=== PATIENT | male | born 2000 | race African-American/Black ===

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

== ENCOUNTER 2019-07-01 17:47 | Emergency (ER) | payer SELFPAY ==
[~2019-07-01] VITALS: Ht 182.9 cm; Wt 77.3 kg
[~2019-07-01 17:47] MED LIST: AMOX1TAB10 PO
[2019-07-01 18:46] LABS: BILIRUBIN,URINE NEGATIVE (NEG); CLARITY,URINE CLEAR; COLOR,URINE YELLOW; NITRITE,URINE NEGATIVE (NEG); PH,URINE 6.5 (<5.0-8.0); PROTEIN,URINE 30 mg/dL (NEG-TRACE)
[2019-07-01 18:51] LABS: BARBITURATES NEG (NEG); BENZODIAZEPINES NEG (NEG); CANNABINOIDS POS (NEG); COCAINE NEG (NEG); METHADONE NEG (NEG); OPIATES NEG (NEG); PHENCYCLIDINE NEG (NEG)
[2019-07-01 18:52] LABS: AMPHETAMINE/METHAMPHETAMINE NEG (NEG)
[2019-07-01 19:07] LABS: BACTERIA,URINE 0 /HPF (0-FEW); HYALINE CASTS, URINE OCCASIONAL /HPF; RBC,URINE OCC /HPF (0-2); SQUAMOUS EPITHELIAL CELL,UR FEW /LPF; WBC,URINE 0 /HPF (0-4)
[2019-07-01] MEDS ORDERED: IV NORMAL SALINE 1000ML BAG 1,000 ML IV ONE (19:15)
[2019-07-01] MEDS ORDERED: ONDANSETRON PF 4 MG/2 ML VIAL. IV ONE (19:30)
[2019-07-01] MEDS ORDERED: ONDANSETRON PF 4 MG/2 ML VIAL. ONE (19:31)
--- NOTE | 2019-07-01 20:11 | RAD ---
Exam: CT head INDICATION: Loss of consciousness TECHNIQUE: Sequential axial images through the head were obtained without the administration of IV contrast. Comparisons: None FINDINGS: No focal parenchymal lesion or hemorrhage is identified. There is no midline shift or sulcal effacement. No acute vascular territory infarction is identified. Culver-white distinction is preserved. The ventricular system is within normal limits without compression hydrocephalus. The basal cisterns are well maintained. The visualized portions of the paranasal sinuses and mastoid air cells are well-pneumatized. No acute fractures. IMPRESSION: No acute intracranial abnormality. Exposure: One or more of the following in the visualized dose reduction techniques were utilized for this examination: 1. Automated exposure control 2. Adjustment of the MA and/or KV according to patient size Use of iterative of reconstructive technique Electronically signed by: July Mesa MD (07/01/2019 8:09 PM) [id number]
[2019-07-01 20:14] LABS: BASO % 0 % (0-3); EOS # 0.1 x10^3/uL (0.0-0.7); EOS % 0 % (0-3); HEMATOCRIT 40.8 % (39.0-53.0); HEMOGLOBIN 13.8 g/dL (13.0-17.5); LYMPH # 0.6 x10^3/uL (1.0-4.8); LYMPH % 5 % (24-48); MEAN CORPUSCULAR HEMOGLOBIN 28 pg (25-35); MEAN CORPUSCULAR HGB CONC 34 g/dL (31-37); MEAN CORPUSCULAR VOLUME 83 fL (79-100); MONO % 8 % (0-9); NEUT # 11.6 x10^3/uL (1.8-7.7); NEUT % 87 % (31-73); PLATELET COUNT 226 x10^3/uL (140-400); RED BLOOD COUNT 4.89 x10^6/uL (4.30-5.70); RED CELL DISTRIBUTION WIDTH 13.8 % (11.5-14.5); WHITE BLOOD COUNT 13.4 x10^3/uL (4.0-11.0)
--- NOTE | 2019-07-01 20:17 | PHYS DOC ---
Past Medical History Past Medical History: No Pertinent History (JOSE FENG APRN) Past Surgical History: No Surgical History (JOSE FENG APRN) Smoking Status: Never Smoker Alcohol Use: None Drug Use: Marijuana Social History Narrative: DENIES (JOSE FENG APRN) Attending Signature I have participated in the care of this patient and I have reviewed and agree with all pertinent clinical information above including history, exam, and recommendations. (JUDAH SKY MD) Adult General Chief Complaint Chief Complaint: OVERDOSE HPI HPI Patient is a 18 year old AA male who presents to the emergency department via EMS with reports of being found by family members with snoring respirations and unconscious. EMS reported that they started an IV and gave the patient 2 mg of IV Narcan. Shortly after the patient became responsive and vomited. He is alert and oriented to person place and year. However, the patient states that he does not remember what happened. His only complaint at this time is that he feels cold all over. Patient denies taking any illicit drugs or drinking alcohol. He denies any recent head injury. Denies any fever, cough, shortness of breath, chest pain, palpitations, diarrhea, or abdominal pain. The patient currently denies any pain. (JOSE FENG APRN) Review of Systems Review of Systems Complete ROS is negative unless otherwise noted in HPI. (JOSE FENG APRN) Current Medications Current Medications Current Medications Medications (Trade) Dose Ordered Sig/Afsaneh Start Time Stop Time Status Last Admin Dose Admin Ondansetron HCl (Zofran) 4 mg 1X ONCE 07/01/19 19:30 07/01/19 19:31 DC 07/01/19 19:38 4 MG Sodium Chloride 1,000 ml @ 1,000 mls/hr 1X ONCE 07/01/19 19:15 07/01/19 20:14 DC 07/01/19 19:38 1,000 MLS/HR (JUDAH SKY MD) Allergies Allergies Allergies Coded Allergies Type Severity Reaction Last Updated Verified No Known Drug Allergies 09/08/17 No (JUDAH SKY MD) Physical Exam Physical Exam See Above Constitutional: Well developed, well nourished, no acute distress, non-toxic appearance. [] HENT: Normocephalic, atraumatic, bilateral external ears normal, oropharynx moist, no oral exudates, nose normal. [] Eyes: PERRLA, EOMI, conjunctiva normal, no discharge. [] Neck: Normal range of motion, no stridor. [] Cardiovascular:Heart rate regular rhythm, no murmur [] Lungs & Thorax: Bilateral breath sounds clear to auscultation, Respirations even and unlabored, no retractions, no respiratory distress[] Abdomen: Bowel sounds normal, soft, no tenderness, no masses, no pulsatile masses. [] Skin: Warm, dry, no erythema, no rash. [] Back: No tenderness Extremities: No tenderness, no cyanosis, ROM intact, no edema. [] Neurologic: Alert and oriented X 3, no focal deficits noted. [] Psychologic: Affect normal, judgement normal, mood normal. [] (JOSE FENG APRN) Current Patient Data Vital Signs Vital Signs Date Time Temp Pulse Resp B/P (MAP) Pulse Ox O2 Delivery O2 Flow Rate FiO2 07/01/19 20:47 106 20 07/01/19 19:38 98 07/01/19 17:47 97.3 140/77 (98) Room Air 97.3 (JUDAH SKY MD) Lab Values Laboratory Tests Test 07/01/19 18:25 07/01/19 20:00 Urine Collection Type Void Urine Color Yellow Urine Clarity Clear Urine pH 6.5 (<5.0-8.0) Urine Specific [place] 1.020 (1.000-1.030) Urine Protein 30 mg/dL (NEG-TRACE) Urine Glucose (UA) Negative mg/dL (NEG) Urine Ketones (Stick) Negative mg/dL (NEG) Urine Blood Negative (NEG) Urine Nitrite Negative (NEG) Urine Bilirubin Negative (NEG) Urine Urobilinogen Dipstick 1.0 mg/dL (0.2 mg/dL) Urine Leukocyte Esterase Negative (NEG) Urine RBC Occ /HPF (0-2) Urine WBC 0 /HPF (0-4) Urine Squamous Epithelial Cells Few /LPF Urine Bacteria 0 /HPF (0-FEW) Urine Hyaline Casts Occasional /HPF Urine Mucus Marked /LPF Urine Opiates Screen Neg (NEG) Urine Methadone Screen Neg (NEG) Urine Barbiturates Neg (NEG) Urine Phencyclidine Screen Neg (NEG) Urine Amphetamine/Methamphetamine Neg (NEG) Urine Benzodiazepines Screen Neg (NEG) Urine Cocaine Screen Neg (NEG) Urine Cannabinoids Screen Pos (NEG) Urine Ethyl Alcohol Neg (NEG) White Blood Count 13.4 x10^3/uL (4.0-11.0) H Red Blood Count 4.89 x10^6/uL (4.30-5.70) Hemoglobin 13.8 g/dL (13.0-17.5) Hematocrit 40.8 % (39.0-53.0) Mean Corpuscular Volume 83 fL (79-100) Mean Corpuscular Hemoglobin 28 pg (25-35) Mean Corpuscular Hemoglobin Concent 34 g/dL (31-37) Red Cell Distribution Width 13.8 % (11.5-14.5) Platelet Count 226 x10^3/uL (140-400) Neutrophils (%) (Auto) 87 % (31-73) H Lymphocytes (%) (Auto) 5 % (24-48) L Monocytes (%) (Auto) 8 % (0-9) Eosinophils (%) (Auto) 0 % (0-3) Basophils (%) (Auto) 0 % (0-3) Neutrophils # (Auto) 11.6 x10^3/uL (1.8-7.7) H Lymphocytes # (Auto) 0.6 x10^3/uL (1.0-4.8) L Monocytes # (Auto) 1.0 x10^3/uL (0.0-1.1) Eosinophils # (Auto) 0.1 x10^3/uL (0.0-0.7) Basophils # (Auto) 0.0 x10^3/uL (0.0-0.2) Segmented Neutrophils % 91 % (35-66) H Lymphocytes % 2 % (24-48) L Monocytes % 5 % (0-10) Eosinophils % 1 % (0-5) Basophils % 1 % (0-3) Toxic Granulation Slight Platelet Estimate Adequate (ADEQUATE) Sodium Level 145 mmol/L (136-145) Potassium Level 3.6 mmol/L (3.5-5.1) Chloride Level 106 mmol/L (98-107) Carbon Dioxide Level 28 mmol/L (21-32) Anion Gap 11 (6-14) Blood Urea Nitrogen 10 mg/dL (8-26) Creatinine 1.1 mg/dL (0.7-1.3) Estimated GFR (Cockcroft-Gault) 103.3 BUN/Creatinine Ratio 9 (6-20) Glucose Level 98 mg/dL (70-99) Calcium Level 8.8 mg/dL (8.5-10.1) Total Bilirubin 0.7 mg/dL (0.2-1.0) Aspartate Amino Transferase (AST) 113 U/L (15-37) H Alanine Aminotransferase (ALT) 100 U/L (16-63) H Alkaline Phosphatase 86 U/L (46-116) Total Protein 6.6 g/dL (6.4-8.2) Albumin 4.0 g/dL (3.4-5.0) Albumin/Globulin Ratio 1.5 (1.0-1.7) Salicylates Level < 2.8 mg/dL (2.8-20.0) L Salicylate Last Dose Date Unknown Salicylate Last Dose Time Unknown Acetaminophen Level < 2 mcg/ml (10-30) L Acetaminophen Last Dose Date Unknown Acetaminophen Last Dose Time Unknown Ethyl Alcohol Level < 10 mg/dL (0-10) Laboratory Tests 07/01/19 20:00 Laboratory Tests 07/01/19 20:00 (JUDAH SKY MD) EKG EKG 1702- SR leftward axis, non-specific intraventricular block, rate 85, no STEMI, read by Dr. Araya[] (JOSE FENG APRN) Radiology/Procedures Radiology/Procedures PROCEDURE: CT HEAD WO CONTRAST Exam: CT head INDICATION: Loss of consciousness TECHNIQUE: Sequential axial images through the head were obtained without the administration of IV contrast. Comparisons: None FINDINGS: No focal parenchymal lesion or hemorrhage is identified. There is no midline shift or sulcal effacement. No acute vascular territory infarction is identified. Culver-white distinction is preserved. The ventricular system is within normal limits without compression hydrocephalus. The basal cisterns are well maintained. The visualized portions of the paranasal sinuses and mastoid air cells are well-pneumatized. No acute fractures. IMPRESSION: No acute intracranial abnormality. Exposure: One or more of the following in the visualized dose reduction techniques were utilized for this examination: 1. Automated exposure control 2. Adjustment of the MA and/or KV according to patient size Use of iterative of reconstructive technique[] (JOSE FENG APRN) Course & Med Decision Making Course & Med Decision Making Pertinent Labs and Imaging studies reviewed. (See chart for details) Patient is a 18-year-old male who presented to the emergency room after being found unresponsive with snoring respirations. He was given Narcan by EMS intravenously prior to arrival. The patient was alert and oriented his only complaint was that he was cold. Patient denied any illicit drug use or alcohol use. He denied any fever or cold symptoms. A CT of his head was ordered, CBC, CMP, salicylate, acetaminophen, urine drug screen and UA was ordered. Eventually the patient admitted to the nurse that was taking care of him that he took half of a blue round pill that was marked with and that he had bowel history. Patient states he was told that the pill is a 30 mg Percocet. CBC revealed a white blood cell count of 13.4, otherwise unremarkable; CMP revealed AST 113, ALT 100, otherwise unremarkable; UA is unremarkable, UDS is positive for cannabinoids. CT of patient's head revealed no acute findings. Patient's vital signs are stable throughout the emergency department visit he remained alert and oriented patient denied any complaints. I discussed the risks involved with taking drugs that are purchased on the street with the patient and encouraged him to stop using illicit substances. Patient was instructed to return to the ER if symptoms returned or worsen. Patient verbalized an understanding of home care, medications, follow-up, and return to ED instructions and was in agreement with the plan of care. [] (JOSE FENG APRN) Dragon Disclaimer Dragon Disclaimer This electronic medical record was generated, in whole or in part, using a voice recognition dictation system. (JOSE FENG APRN) Departure Departure Impression: Primary Impression: Ingested substance, unknown drug Disposition: HOME, SELF-CARE Condition: STABLE Referrals: NO PCP (PCP) Patient Instructions: Drug Abuse, FAQs Additional Instructions: Stop abusing drugs. Follow up with a primary care doctor as needed. Return to the ER if symptoms worsen. Problem Qualifiers Primary Impression: Ingested substance, unknown drug Encounter type: initial encounter Injury intent: accidental or unintentional Qualified Codes: T50.901A - Poisoning by unspecified drugs, medicaments and biological substances, accidental (unintentional), initial encounter JOSE FENG APRN Jul 01, 2019 20:17 JUDAH SKY MD Jul 01, 2019 21:30
[2019-07-01 20:29] LABS: CALCIUM 8.8 mg/dL (8.5-10.1); CREATININE 1.1 mg/dL (0.7-1.3); GFR 103.3; POTASSIUM 3.6 mmol/L (3.5-5.1)
[2019-07-01 20:35] LABS: ALBUMIN/GLOBULIN RATIO 1.5 (1.0-1.7); TOTAL BILIRUBIN 0.7 mg/dL (0.2-1.0); TOTAL PROTEIN 6.6 g/dL (6.4-8.2)
[2019-07-01 20:36] LABS: % BASOS 1 % (0-3); % EOS 1 % (0-5); % LYMPHS 2 % (24-48); % MONOS 5 % (0-10); % SEGS 91 % (35-66)
[2019-07-01 20:38] LABS: PLT ESTIMATE ADEQUATE (ADEQUATE); TOXIC GRANULATION SLIGHT
[2019-07-01 20:41] LABS: ACETAMIN < 2 mcg/ml (10-30); ETHANOL < 10 mg/dL (0-10); SALIC < 2.8 mg/dL (2.8-20.0)
[2019-07-01 20:47] VITALS: BP 137/68
--- NOTE | 2019-07-01 21:14 | EKG ---
[facility] [address] [place] [address] Test Date: 2019-07-01 Test Time: 17:55:48 Pat Name: JOE PARIKH Department: Room: Gender: M [employer]: : 2000 Requested By: JOSE FENG Order Number: [id number] Reading MD: Measurements Intervals [place] Rate: 105 P: 59 CO: 156 QRS: 81 QRSD: 84 T: 51 QT: 310 QTc: 413 Interpretive Statements SINUS TACHYCARDIA NO SPECIFIC ECG ABNORMALITIES RI6.01 No previous ECG available for comparison
== END 2019-07-01 21:23 | disposition home or self-care (01) ==
LOC: ER 17:47
DX: T50.7X1A Poisoning by analeptics and opioid receptor antagonists, accidental (unintentional), initial encounter (principal); R06.83 Snoring; R40.20 Unspecified coma; R11.10 Vomiting, unspecified; F12.90 Cannabis use, unspecified, uncomplicated; Y92.89 Other specified places as the place of occurrence of the external cause
CPT/HCPCS: 36415; 70450; 80053; 80307; 80329; 81001; 85007; 85025; 93005; 96361; 96374; 99285; G0480; J2405; J7030